=== PATIENT | male | born 1950 | race Caucasian/White ===

== ENCOUNTER 2017-12-09 12:01 | Inpatient (IN) | payer OTHER ==
[~2017-12-09] VITALS: Ht 177.8 cm; Wt 89.8 kg
[2017-12-09] MEDS ORDERED: TOPROL XL25 M1 (13:40)
[2017-12-09] MEDS ORDERED: LOTREL 5-10 MG1 CAP (13:40)
[2017-12-09] MEDS ORDERED: WELLBUTRIN XL300 MG (13:41)
[2017-12-09] MEDS ORDERED: TRICOR145 MG (13:41)
[2017-12-09] MEDS ORDERED: ZOCOR20 MG (13:41)
[2017-12-09] MEDS ORDERED: PRILOSEC OTC20 MG (13:41)
[2017-12-09] MEDS ORDERED: SINGULAIR 10MG10 MG (13:42)
[2017-12-09] MEDS ORDERED: VENTOLIN HFA18 GM (13:42)
[2017-12-14] MEDS ORDERED: Invanz IV (09:46)
== END 2017-12-14 14:40 | disposition home or self-care (01) | DRG 689 ==
LOC: ER 12:01 → MEDI 21:42 → ICU-2 21:42 → SEC-K 12-11 08:54 → MEDI 12-11 10:47
PROC: BW21ZZZ Computerized Tomography (CT Scan) of Abdomen and Pelvis (ICD-10-PCS; principal; 2017-12-09)
PROC: BV44ZZZ Ultrasonography of Scrotum (ICD-10-PCS; 2017-12-09)
PROC: BT43ZZZ Ultrasonography of Bilateral Kidneys (ICD-10-PCS; 2017-12-10)
DX: N39.0 Urinary tract infection, site not specified (principal); A41.9 Sepsis, unspecified organism; N45.1 Epididymitis; B96.20 Unspecified Escherichia coli [E. coli] as the cause of diseases classified elsewhere; Z16.12 Extended spectrum beta lactamase (ESBL) resistance